=== PATIENT | female | born 1990 | race Caucasian/White ===

== ENCOUNTER 2018-11-09 17:32 | Emergency (ER) | payer MEDICAID ==
[~2018-11-09] VITALS: Ht 167.6 cm; Wt 116.9 kg
[2018-11-09 17:37] VITALS: Ht 167.6 cm; Wt 116.9 kg
[2018-11-09] MEDS ORDERED: ACETAMINOPHEN 325 MG TAB PO STA (22:36)
--- NOTE | 2018-11-09 23:04 | ERD ---
ER Documentation Chief Complaint Chief Complaint Complains of bvag bleed x 3 days HPI This is a 28-year-old female, 012 presents ED with complaints of vaginal bleeding since this morning. Patient had a positive test yesterday, but also had one negative test yesterday to. Patient states that she has had some spotting and she is only used 1 pad today. Patient has not passed any clots. Patient admits to some lower pelvic cramping associated with the vaginal bleeding. Last menstrual period was 09/28/2018, patient was seen by [facility] [employer] yesterday at [facility] but she is unsure what the do ctor's name was and he confirmed a positive test. Patient denies nausea, vomiting, diarrhea, constipation, dysuria, hematuria, vaginal discharge or vaginal pain. ROS All systems reviewed and are negative except as per history of present illness. Allergies Allergies: Coded Allergies: No Known Allergy (Unverified , 11/09/18) PMhx/Soc History of Surgery: No Anesthesia Reaction: No Hx Neurological Disorder: No Hx Respiratory Disorders: No Hx Cardiac Disorders: No Hx Psychiatric Problems: No Hx Miscellaneous Medical Probl: Yes (STATES SHE DID 2 PREGANCY TESTS: POSITIVE) Hx Alcohol Use: No Hx Substance Use: No Hx Tobacco Use: No Smoking Status: Never smoker FmHx Family History: No diabetes Physical Exam Vitals Vital Signs Date Temp Pulse Resp B/P (MAP) Pulse Ox O2 O2 Flow FiO2 Time Delivery Rate 11/09/18 99.3 85 20 149/70 98 17:37 (96) Physical Exam Physical Exam Vitals signs: Reviewed by me. General: Well developed, well nourished, in no acute distress. Patient is awake and alert. Head: Normocephalic, atraumatic. Eyes: Normal conjunctiva, Pupils PERRLA, EOM intact grossly ENT: Pharynx is clear, Moist mucous membranes, external ears, nose and mouth normal Neck: Supple, no masses, lymphadenopathy or JVD Respiratory: Clear to auscultation bilaterally with no wheezing, rhonchi, rales, no distress Cardiovascular: RRR, no murmurs, rubs, or gallops Abdominal: Soft, no peritoneal signs, no rigidity, no surgical abdomen, bowel sounds present all 4 quadrants, nontender 90 palpation all 4 quadrants, McBurney's point nontender, Almodovar sign negative, no rebound tenderness, no suprapubic tenderness : Deferred Back: No midline tenderness. No flank tenderness Neurologic: Alert and oriented, moving all extremities, normal speech, no focal weakness, no cerebellar signs. Normal mentation Skin: warm and dry, No rash Psych: Normal mood Result Diagram: 11/09/18225111/09/182251 Results 24 hrs Laboratory Tests Test 11/09/18 22:49 11/09/18 22:52 POC Beta HCG, Qualitative NEGATIVE White Blood Count 10.8 10^3/ul Red Blood Count 4.47 10^6/ul Hemoglobin 12.8 g/dl Hematocrit 40.0 % Mean Corpuscular Volume 89.5 fl Mean Corpuscular Hemoglobin 28.6 pg Mean Corpuscular Hemoglobin Concent 32.0 g/dl Red Cell Distribution Width 14.4 % Platelet Count 359 10^3/UL Mean Platelet Volume 9.5 fl Immature Granulocytes % 0.300 % Neutrophils % 56.6 % Lymphocytes % 33.7 % Monocytes % 6.8 % Eosinophils % 2.1 % Basophils % 0.5 % Nucleated Red Blood Cells % 0.0 /100WBC Immature Granulocytes # 0.030 10^3/ul Neutrophils # 6.1 10^3/ul Lymphocytes # 3.6 10^3/ul Monocytes # 0.7 10^3/ul Eosinophils # 0.2 10^3/ul Basophils # 0.1 10^3/ul Nucleated Red Blood Cells # 0.0 10^3/ul Urine Color YELLOW Urine Clarity SLIGHTLY CLOUDY Urine pH 5.0 Urine Specific [place] 1.014 Urine Ketones NEGATIVE mg/dL Urine Nitrite NEGATIVE mg/dL Urine Bilirubin NEGATIVE mg/dL Urine Urobilinogen NEGATIVE mg/dL Urine Leukocyte Esterase NEGATIVE Xavi/ul Urine Microscopic RBC 1 /HPF Urine Microscopic WBC 1 /HPF Urine Squamous Epithelial Cells MODERATE /HPF Urine Bacteria FEW /HPF Urine Mucus FEW /HPF Urine Hemoglobin 3+ mg/dL Urine Glucose NEGATIVE mg/dL Urine Total Protein NEGATIVE mg/dl Sodium Level 138 mmol/L Potassium Level 4.1 mmol/L Chloride Level 103 mmol/L Carbon Dioxide Level 26 mmol/L Anion Gap 9 Blood Urea Nitrogen 10 mg/dl Creatinine 0.61 mg/dl Est Glomerular Filtrat Rate mL/min > 60 mL/min Glucose Level 137 mg/dl Calcium Level 9.4 mg/dl Total Bilirubin 0.1 mg/dl Direct Bilirubin 0.00 mg/dl Indirect Bilirubin 0.1 mg/dl Aspartate Amino Transf (AST/SGOT) 23 IU/L Alanine Aminotransferase (ALT/SGPT) 9 IU/L Alkaline Phosphatase 72 IU/L Total Protein 8.2 g/dl Albumin 4.4 g/dl Globulin 3.80 g/dl Albumin/Globulin Ratio 1.15 Beta HCG, Quantitative 9.8 mIU/ml Current Medications Medications Dose Sig/Gurwinder Start Time Status Last (Trade) Ordered Route PRN Stop Time Admin Dose Reason Admin 650 mg ONCE STAT 11/09/18 DC 11/09/18 Acetaminophen PO 22:36 22:46 (Tylenol 11/09/18 22:39 Tab) Procedures/MDM EKG, MONITORS, & DIAGNOSTIC IMAGING: [place] [id number] Radiology Main Line: [phone] DIAGNOSTIC IMAGING REPORT Patient: YRIS ELLISON : 1990 Age: 28 Sex: F MR #: [id number] DOS: 11/09/18 2236 Ordering MD: OMKAR PARKER PA-C Location: [facility] Room/Bed: PROCEDURE: US OB Pelvis. CLINICAL INDICATION: Vaginal bleeding, possible . TECHNIQUE: Multiple sonographic images of the pelvis were obtained utilizing a transabdominal and endovaginal technique. The images were reviewed on a PACS workstation. COMPARISON: None. FINDINGS: The uterus is visualized and measures 925 5.7 x 7.4 cm. The endometrial echo complex is normal and measures 12 mm. No intrauterine is identified. The right ovary is not visualized. The left ovary measures 3.1 x 3.2 x 1.5 cm. Blood flow is demonstrated to the left ovary. No adnexal masses are noted. There is no free fluid. IMPRESSION: No evidence of intrauterine . If there is clinical concern for ectopic , close follow-up with serial Beta HCG and possible repeat pelvic ultrasound is recommended. Normal appearance of the left ovary. The right ovary is not visualized. RPTAT: HTAR .Louis Downs, MD, MD Date Time Electronically viewed and signed by .Louis Downs MD, MD on 11/10/2018 00:37 .R/ CC: OMKAR PARKER PA-C [id number] LAB INTERPRETATION: CBC shows no evidence of hemorrhage or infection Chemistry shows no evidence of significant electrolyte abnormalities or renal insufficiency Liver function test shows no evidence of acute biliary or hepatic dysfunction Urine negative HCG 9.8 Urinalysis shows few bacteria but moderate squamous epithelial cells, no leuko cyte esterase and no nitrite Blood type O+ ER COURSE: The patient was given Tylenol for pain The medication was well tolerated and the patient reports improvement in symptoms. The patient was stable throughout ED course. I kept the patient and/or family informed of laboratory and diagnostic imaging results throughout the emergency room course. The patient was promptly evaluated and a treatment plan was devised based on H&P and other data. This plan was discussed with the patient who agreed and had no further questions or concerns prior to discharge. MEDICAL DECISION MAKING: This is a 28-year-old female who presents ED with complaints of vaginal bleeding since this morning. Patient was seen yesterday and had one positive test as well as one negative test. test in the emergency department is negative. HCG is 9.8 -which could indicate early or possibly no at all. Differentials include menses, intrauterine , early , threatened , spontaneous , missed or ectopic . Ultrasound does not confirms an intrauterine . Ectopic not visualized on ultrasound. Patient is O+ and does not require any rhogam. Pt is hemodynamically stable. No symptoms of dehydration. Low suspicious for sepsis. No evidence of hemorrhage. Patient will need to repeat quantitative hCG in the next 48-72 days to show a upward trend as well as have a repeat ultrasound in the next 48-72 hours. Advise for patient either return to the ER for repeat quantitative hCG/us or to follow-up with her [facility] doctor for this. At this time there is no [facility] [employer] emergency. Advised to return to ER with any worsening symptoms. DISPOSITION PLAN: We discussed follow up with the patient's primary care doctor within 24 to 48 hours. Patient counseled regarding my diagnostic impression and care plan. Prior to discharge all questions answered. Pt agrees with treatment plan and understands strict return precautions. Precautionary instructions provided including instructions to return to the ER if not improving or for any worsening or changing symptoms or concerns. SPECIALIST FOLLOW UP RECOMMENDED: None Patient has been advised to follow up with primary care in 1-2 days. Disclaimer: Inadvertent spelling and grammatical errors are likely due to EHR/dictation software use and do not reflect on the overall quality of patient care. Also, please note that the electronic time recorded on this note does not necessarily reflect the actual time of the patient encounter. Departure Diagnosis: Primary Impression: Vaginal bleeding Condition: Stable Patient Instructions: Possible Miscarriage (Threatened ), Understanding Periods, Vaginal Bleed in [facility]: [facility] REFERRAL LIST Additional Instructions: Paciente aconseja volver a Departamento de urgencias inmediatamente para sntomas nuevos o que empeoran . Paciente aconseja posteriores con el PCP en 1-2 reveles . Paciente verbaliza la comprehensin y est de acuerdo con el tratamiento y el curso de accin. Si el paciente no tiene ninguna de atencin primaria pueden seguir con [facility] [id number] [place] [address] o [facility] + [address] [id number] OMKAR PARKER PA-C Nov 09, 2018 23:04
[2018-11-10 01:11] VITALS: BP 125/75; PULSE 70; RESP 20
== END 2018-11-10 01:12 | disposition home or self-care (01) ==
LOC: FTE 17:32
DX: O20.9 Hemorrhage in early pregnancy, unspecified (principal); R10.2 Pelvic and perineal pain; Z3A.00 Weeks of gestation of pregnancy not specified
CPT/HCPCS: 36415; 76801; 76817; 80053; 81001; 81025; 84702; 85025; 86900; 86901; Z7502; Z7610